=== PATIENT | male | born 1950 | race Caucasian/White ===

== ENCOUNTER 2017-06-01 18:39 | Emergency (ER) | payer OTHER ==
--- NOTE | 2017-06-01 18:44 | EDPHY ---
H & P Time Seen by Provider: 06/01/17 18:43 HPI/ROS: CHIEF COMPLAINT: Altered mental status, history of adrenal insufficiency HISTORY OF PRESENT ILLNESS: The patient is brought to the emergency department by paramedics with altered mental status. The patient is unable to provide much history. The patient reportedly is visiting from friends from [place]. He went on a bicycle ride today which was not particularly strenuous. He returned back to a rental house with friends at 1 o'clock this afternoon. The patient laid down for a nap at 2 o'clock this afternoon and at 5:00 p.m. awoke and was quite altered and confused. This prompted his visit to the emergency department. The patient reportedly has been in a normal state of health prior to this event. The patient does have several prescription bottles with him. By report he has a history of adrenal insufficiency with a medical alert badge to provide IV Solu-Medrol. REVIEW OF SYSTEMS: A comprehensive 10 point review of systems is otherwise negative aside from elements mentioned in the history of present illness. Source: Patient Exam Limitations: No limitations - Medical/Surgical History Other PMH: Past medical history: Adrenal insufficiency - Family History Significant Family History: No pertinent family hx - Physical Exam Exam: General Appearance: Sleepy but arousable, no acute distress Eyes: Pupils equal and round no pallor or injection ENT, Mouth: Dry mucous membranes Respiratory: There are no retractions, lungs are clear to auscultation Cardiovascular: Regular rate and rhythm Gastrointestinal: Abdomen is soft and nontender, no masses, bowel sounds normal Neurological: Global weakness noted, 5/5 strength all 4 extremities, cranial nerves 2-12 grossly intact Skin: Warm and dry, no rashes Musculoskeletal: Neck is supple nontender Extremities: symmetrical, full range of motion Constitutional: Initial Vital Signs Temperature (C) 36.7 C 06/01/17 18:45 Heart Rate 76 06/01/17 18:45 Respiratory Rate 16 06/01/17 18:45 Blood Pressure 131/84 H 06/01/17 18:45 O2 Sat (%) 93 06/01/17 18:45 O2 Delivery Mode Room Air Allergies/Adverse Reactions: No Known Allergies Allergy (Unverified 06/01/17 18:44) Home Medications: Medication Instructions Recorded Cyclobenzaprine 06/01/17 PROMETHAZINE HCL 06/01/17 Tamsulosin HCl 06/01/17 Tylenol W/Codeine 06/01/17 ZOLPIDEM TARTRATE 06/01/17 traZODone 06/01/17 Medical Decision Making - Diagnostics EKG Interpretation: EKG: Complete interpretation has been separately recorded in the [facility] archive. Summary impression: Sinus rhythm, LVH, nonspecific ST T wave changes noted ED Course/Re-evaluation: The patient had an IV established. Given the patient's history of adrenal insufficiency he received 125 mg of Solu-Medrol. The patient received 1 L of normal saline. The patient was placed on a monitor car operator. Screening laboratory studies have been sent. Additional information was obtained and a number of the patient's regular medications were brought to the emergency department. The patient did have a bottle of number 30 10 mg Ambien which was filled on May 28. 18 of those pills are missing. The patient does report taking (2) 10 mg Ambien tablets after his bicycle ride. The patient continues to have stable vital signs. There are no electrolyte abnormalities consistent with adrenal crisis. I do believe that this is simply a medication misadventure from taking two Ambien tablets earlier today. The patient is traveling with several friends who feel comfortable watching him at home light of the new information regarding the patient's Ambien ingestion. The patient is adamant that he was not suicidal or homicidal. The patient was re-evaluated by myself at 9:00 p.m.. His mentation has improved. The patient states he has been using 3 Ambien on a daily basis for the past day. The patient states that he has had some stress surrounding his trip to [place] but will not elaborate on further details. The patient does contract for safety. The patient is agreeable to having his traveling companions regulate his sleeping pills. I had a lengthy discussion with the patient's traveling companions. My expectation is that his altered mental status would entirely resolve once his Ambien is metabolized. They are instructed that he clearly needs to return to the ED for abnormal behavior that is persistent tomorrow. They should also return to the ED for fever or other concerns. Differential Diagnosis: Differential diagnosis considered includes adrenal insufficiency, metabolic abnormality, medication side effect - Data Points Laboratory Results: Laboratory Results 06/01/17 18:46 06/01/17 18:46 06/01/17 06/01/17 06/01/17 18:46 18:46 18:46 WBC 6.12 10^3/uL 10^3/uL (3.80-9.50) RBC 4.62 10^6/uL 10^6/uL (4.40-6.38) Hgb 13.9 g/dL g/dL (13.7-17.5) Hct 40.9 % % (40.0-51.0) MCV 88.5 fL fL (81.5-99.8) MCH 30.1 pg pg (27.9-34.1) MCHC 34.0 g/dL g/dL (32.4-36.7) RDW 13.7 % % (11.5-15.2) Plt Count 228 10^3/uL 10^3/uL (150-400) MPV 10.2 fL fL (8.7-11.7) Neut % (Auto) 64.7 % % (39.3-74.2) Lymph % (Auto) 26.8 % % (15.0-45.0) [place] % (Auto) 7.2 % % (4.5-13.0) Eos % (Auto) 0.5 % L % (0.6-7.6) Baso % (Auto) 0.5 % % (0.3-1.7) Nucleat RBC Rel Count 0.0 % % (0.0-0.2) Absolute Neuts (auto) 3.96 10^3/uL 10^3/uL (1.70-6.50) Absolute Lymphs (auto) 1.64 10^3/uL 10^3/uL (1.00-3.00) Absolute Monos (auto) 0.44 10^3/uL 10^3/uL (0.30-0.80) Absolute Eos (auto) 0.03 10^3/uL 10^3/uL (0.03-0.40) Absolute Basos (auto) 0.03 10^3/uL 10^3/uL (0.02-0.10) Absolute Nucleated RBC 0.00 10^3/uL 10^3/uL (0-0.01) Immature Gran % 0.3 % % (0.0-1.1) Immature Gran # 0.02 10^3/uL 10^3/uL (0.00-0.10) Sodium 141 mEq/L mEq/L (134-144) Potassium 4.1 mEq/L mEq/L (3.5-5.2) Chloride 107 mEq/L mEq/L (97-110) Carbon Dioxide 24 mEq/l mEq/l (22-31) Anion Gap 10 mEq/L mEq/L (8-16) BUN 17 mg/dL mg/dL (7-23) Creatinine 1.0 mg/dL mg/dL (0.7-1.3) Estimated GFR > 60 Glucose 101 mg/dL H mg/dL (70-100) Calcium 9.3 mg/dL mg/dL (8.5-10.4) Creatine Kinase 127 IU/L IU/L (0-224) Troponin I < 0.012 ng/mL ng/mL (0-0.034) Medications Given: Discontinued Medications Sodium Chloride (Ns) 1,000 mls @ 0 mls/hr IV EDNOW ONE; Wide Open PRN Reason: Protocol Stop: 06/01/17 18:51 Last Admin: 06/01/17 18:56 Dose: 1,000 mls Sodium Chloride (Ns) 1,000 mls @ 0 mls/hr IV EDNOW ONE; Wide Open PRN Reason: Protocol Stop: 06/01/17 19:33 Last Admin: 06/01/17 19:39 Dose: 1,000 mls Methylprednisolone Sodium Succinate (Solu-Medrol) 125 mg IVP EDNOW ONE Stop: 06/01/17 18:59 Last Admin: 06/01/17 18:59 Dose: 125 mg Departure - Departure Disposition: Home, Routine, Self-Care Clinical Impression: Ambien accidental overdose Condition: Good Instructions: Insomnia (ED) Additional Instructions: 1. Do not take Ambien greater than is prescribed dose of 10 mg once daily. 2. Please return to the ED for fever, headache, abnormal behavior or other concerns. 3. Please follow up with your primary care provider as needed. Referrals: Patient,NotPresent [Unknown] - As per Instructions
[2017-06-01] MEDS ORDERED: NS 1,000 ML IV ONE ×2 (18:50→19:32)
--- NOTE | 2017-06-01 18:51 | CPEKG ---
Heart Rate: 72 RR Interval: 833 P-R Interval: 196 QRSD Interval: 98 QT Interval: 380 QTC Interval: 416 P [place]: 65 QRS [place]: 60 T Wave [place]: 18 EKG Severity - ABNORMAL ECG - EKG Impression: SINUS RHYTHM EKG Impression: LEFT VENTRICULAR HYPERTROPHY Electronically Signed By: Dominik Osman 01-Jun-2017 19:04:12
[2017-06-01] MEDS ORDERED: methylPREDNISolone SOD SUCC 125 MG/2 ML VIAL ONE (18:53)
[2017-06-01] MEDS ORDERED: methylPREDNISolone SOD SUCC 125 MG/2 ML VIAL IVP ONE (18:58)
[2017-06-01 19:02] LABS: % IMMATURE GRANULYOCYTES 0.3 % (0.0-1.1); ABSOLUTE IMMATURE GRANULOCYTES 0.02 10^3/uL (0.00-0.10); ADD DIFF? NO; ADD MORPH? NO; ADD SCAN? NO; ATYPICAL LYMPHOCYTE FLAG 0 (0-99); FRAGMENT RBC FLAG 0 (0-99); HEMATOCRIT 40.9 % (40.0-51.0); HEMOGLOBIN 13.9 g/dL (13.7-17.5); LEFT SHIFT FLG 0 (0-99); LIPEMIA HEMOLYSIS FLAG 90 (0-99); MEAN CELL HEMOGLOBIN 30.1 pg (27.9-34.1); MEAN CELL VOLUME 88.5 fL (81.5-99.8); MEAN PLATELET VOLUME 10.2 fL (8.7-11.7); PLATELET CLUMPS FLAG 0 (0-99); PLATELET COUNT 228 10^3/uL (150-400); RED BLOOD CELL COUNT 4.62 10^6/uL (4.40-6.38); RED CELL DISTRIBUTION WIDTH 13.7 % (11.5-15.2)
[2017-06-01 19:26] LABS: ANION GAP 10 mEq/L (8-16); CALCIUM 9.3 mg/dL (8.5-10.4); CARBON DIOXIDE 24 mEq/l (22-31); CHLORIDE 107 mEq/L (97-110); GLOMERULAR FILTRATION RATE > 60; GLUCOSE 101 mg/dL (70-100); POTASSIUM 4.1 mEq/L (3.5-5.2); SODIUM 141 mEq/L (134-144)
[2017-06-01 20:45] VITALS: BP 139/76; PULSE 61; RESP 18; TEMP 97.9; O2SAT 90
== END 2017-06-01 20:45 | disposition home or self-care (01) ==
DX: T42.6X1A Poisoning by other antiepileptic and sedative-hypnotic drugs, accidental (unintentional), initial encounter (principal); E86.9 Volume depletion, unspecified
CPT/HCPCS: 96374